=== PATIENT | male | born 2000 | race Caucasian/White ===

== ENCOUNTER 2023-12-29 00:59 | Emergency (ER) | payer OTHER ==
--- NOTE | 2023-12-29 02:01 | XRAY Report ---
PROCEDURE: Ankle 3+V RT INDICATIONS: ankle pain TECHNIQUE: 3 views of the ankle were acquired. COMPARISON: None. FINDINGS: Bones: No fractures or dislocations. Ankle mortise is normally aligned. No suspicious bony lesions . Soft tissues: No tibiotalar joint effusion. Achilles tendon appears normal. IMPRESSION: No acute bony abnormality. If pain persists with conservative management, consider repeat x-ray in 10 -14 days or cross-sectional imaging. Reviewed by: Hernan Blackwell MD on 12/29/2023 1:59 AM PDT Approved by: Hernan Blackwell MD on 12/29/2023 1:59 AM PDT Station ID: [id number]
[2023-12-29] MEDS: MORPHINE 2 MG/ML CARPUJECT IM STA (02:09)
--- NOTE | 2023-12-29 02:35 | ED Physician Documentation ---
History of Present Illness - Stated complaint Stated Complaint: R ANKLE PX - Chief complaint Chief Complaint: Ext Problem - History obtained from History obtained from: Patient - Additonal information Additional information: 23yM p/w R ankle pain s/p injury while playing soccer. patient twisted it and fell to ground. able to bear weight immediately after but not now. denies other injury PD PAST MEDICAL HISTORY - Past Medical History Past Medical History: Yes Cardiovascular: Hypertension - Past Surgical History Past Surgical History: No - Present Medications Home Medications: Ambulatory Orders Medication Instructions Recorded Confirmed Losartan Potassium 25 mg PO DAILY 12/29/23 12/29/23 - Allergies Allergies/Adverse Reactions: Allergies Allergy/AdvReac Type Severity Reaction Status Date / Time No Known Drug Allergies Allergy Verified 12/29/23 01:14 - Social History Does the pt smoke?: No Smoking Status: Never smoker Does the pt drink ETOH?: No Does the pt have substance abuse?: No - Immunizations Immunizations are current?: Yes PD ED PE NORMAL - Vitals Vital signs reviewed: Yes - General General: Alert and oriented X 3, No acute distress, Well developed/nourished - HEENT HEENT: Atraumatic, PERRL, EOMI - Derm Derm: Normal color, Warm and dry, Other (no ecchymoses) - Extremities Extremities: Other (R ankle with pain with rom. lateral ankle mild swelling. nontender to palpation of lateral/medial malleolus or 5th metatarsal. csm intact) Results - Vitals Vitals: Vital Signs - 24 hr 12/29/23 01:11 Temperature 36.8 C Heart Rate 106 H Respiratory 18 Rate Blood Pressure 153/90 H O2 Saturation 99 Oxygen O2 Source Room air PD Medical Decision Making - ED course ED course: 23yM p/w R ankle sprain. xrays noncontributory. pain improved with IM pain meds. sympotmatic care discussed. return precautions given. plan to have f/u xrays with pcm. Departure - Departure Disposition: 01 Home, Self Care Clinical Impression: Ankle sprain Condition: Stable Instructions: ED RICE Comments: You were seen in the emergency department for ankle injury. Please have your pcm order follow up xrays in 1 week if no improvement. Ibuprofen 600mg every 6 hours as needed for pain with a snack. Please follow-up with your primary care provider and return to the emergency department if you have any new or worsening symptoms or other concerns. Forms: PCP List, Activity restrictions
[2023-12-29 03:07] VITALS: BP 143/90; O2SAT 98
== END 2023-12-29 02:56 | disposition home or self-care (01) ==
LOC: ED 00:59
DX: S93.401A Sprain of unspecified ligament of right ankle, initial encounter (principal); X58.XXXA Exposure to other specified factors, initial encounter; Y93.66 Activity, soccer; I10 Essential (primary) hypertension
CPT/HCPCS: 96372; 99283

== ENCOUNTER 2024-02-23 13:42 | Outpatient (CLI) | payer OTHER ==
--- NOTE | 2024-02-23 14:33 | XRAY Report ---
PROCEDURE: Chest 2V INDICATIONS: SCREENING EXAMINATION FOR PULMONARY TUBERCULOSIS TECHNIQUE: 2 views of the chest were acquired. COMPARISON: None. FINDINGS: Surgical changes and devices: None. Lungs and pleura: No pleural effusions or pneumothorax. Lungs are clear. Mediastinum: Mediastinal contours appear normal. Heart size is normal. Bones and chest wall: No suspicious bony lesions. Overlying soft tissues appear unremarkable. IMPRESSION: No acute cardiopulmonary process. Reviewed by: Danny Esquivel MD on 02/23/2024 1:32 PM [facility] Approved by: Danny Esquivel MD on 02/23/2024 1:32 PM AKDT Station ID: [id number]
== END 2024-02-23 13:43 | disposition home or self-care (01) ==
LOC: DI 13:42
PROVIDERS: ATTEND Physician Assistant Medical
DX: Z11.1 Encounter for screening for respiratory tuberculosis (principal)